=== PATIENT | male | born 1965 ===

== ENCOUNTER 2019-01-02 05:30 | Day surgery (SDC) | payer OTHER ==
[~2019-01-02 05:30] MED LIST: ADVAIR; PREDISONE PO; PROVENTIL HFA6.7 GM IH; SINGULAIR10 MG PO; SYNTH PO; VENTOLIN HFA18 GM IH
[2019-01-02] MEDS ORDERED: AFRIN15 ML NASAL (10:47)
[2019-01-02] MEDS ORDERED: ULTRACET PO (10:50)
== END 2019-01-02 13:57 | disposition home or self-care (01) ==
LOC: CIR.AMB 05:30
DX: J33.0 Polyp of nasal cavity (principal)